=== PATIENT | female | born 1965 | race Caucasian/White ===

== ENCOUNTER → 2016-11-23 | Outpatient (CLI) | payer MEDICAID ==
--- NOTE | 2016-11-23 19:46 | MR ---
MRI of the Lumbar Spine (Without Contrast) at 1330 hours Clinical Indications: Lumbago, with sciatica. M54. 41. Technique: Sagittal and axial T1 and T2 and sagittal STIR MR sequences of the lumbar spine, without contrast. Axial imaging from T11-S1. Findings: Transitional level, with partial sacralization of L5 bilaterally. The L5-S1 disk space de monstrates no degenerative changes. Please correlate with plain films. Lumbar vertebral bodies are of normal height, without compression fractures. Conus medullaris appea rs normal and ends at T12-L1. T11-T12: Mild degenerative disk disease, with ventral osteophytes. No disk herniation or stenosis. T12-L1: Moderate degenerative disk disease, with a left paramedian disk herniation, protrusion, circ umferential osteophytes, minimal retrolisthesis, resulting in minimal central canal stenosis, without neural foraminal stenosis. L1-L2: Mild degenerative disk disease, mild bilateral facet arthropathy, and degenerative grade 1 r etrolisthesis. No central canal or neural foraminal stenosis. L2-L3: Mild bilateral facet arthropathy and degenerative grade 1 retrolisthesis resulting in minimal central canal stenosis, without neural foraminal stenosis. L3-L4: Mild disk bulge and severe bilateral facet arthropathy resulting in moderate central canal st enosis and mild bilateral neural foraminal stenosis. L4-L5: Severe degenerative disk disease, with endplate diskogenic changes, vacuum disk phenomena, m oderate disk space narrowing, right paramedian disk herniation and osteophytes, and moderate bilatera l facet hypertrophy resulting in moderate central canal stenosis, severe right lateral recess stenosi s, and moderate to severe bilateral neural foraminal stenosis, right worse than left. L5-S1: Transitional level, without evidence of disk herniation or stenosis. Pseudoarthrosis on the left at L5-S1 and sacralization on the right at L5. Impressions 1. Transitional level at L5-S1, with partial sacralization bilaterally. 2. L4-L5: Severe degenerative disk disease, with a right paramedian disk/osteophyte complex and sev ere bilateral facet arthropathy, resulting in moderate central canal stenosis, severe right lateral r ecess stenosis, and moderate to severe bilateral neural foraminal stenosis, right worse than left. 3. L3-L4: Moderate central canal stenosis secondary to severe bilateral facet arthropathy and disk bulge. 4. Please see above findings at specific disk levels. E:PARIS/amestelita
== END ==
LOC: FIMAGING 13:06
PROVIDERS: ATTEND Physician Assistant
DX: M51.36 Other intervertebral disc degeneration, lumbar region (principal); M51.26 Other intervertebral disc displacement, lumbar region; M47.896 Other spondylosis, lumbar region; M48.06 Spinal stenosis, lumbar region; M99.73 Connective tissue and disc stenosis of intervertebral foramina of lumbar region

== ENCOUNTER → 2017-06-23 | Outpatient (CLI) | payer MEDICAID | LOC: FIMAGING 13:01 | PROVIDERS: ATTEND Physician Assistant | DX: Z12.39 Encounter for other screening for malignant neoplasm of breast (principal); R92.8 Other abnormal and inconclusive findings on diagnostic imaging of breast | CPT/HCPCS: G0206 ==